=== PATIENT | female | born 1980 | race Caucasian/White ===

== ENCOUNTER 2023-12-15 12:03 | Emergency (ER) | payer OTHER ==
[2023-12-15 12:28] VITALS: BP 90/58; PULSE 96; RESP 18; TEMP 98.2; BMI 26.2
== END 2023-12-15 13:16 | disposition home or self-care (01) ==
LOC: FER 12:03
DX: R22.0 Localized swelling, mass and lump, head (principal)
CPT/HCPCS: 99282-25

== ENCOUNTER 2024-01-27 10:00 | Emergency (ER) | payer OTHER ==
[2024-01-27 10:14] VITALS: BP 147/91; PULSE 87; RESP 20; TEMP 97.9; BMI 25.2
== END 2024-01-27 12:01 | disposition home or self-care (01) ==
LOC: FER 10:00
DX: R22.41 Localized swelling, mass and lump, right lower limb (principal); M79.604 Pain in right leg
CPT/HCPCS: 93971-TC; 99284-25